=== PATIENT | female | born 1965 | race Caucasian/White ===

== ENCOUNTER 2023-02-06 07:47 | Emergency (ER) | payer OTHER ==
--- OUTSIDE RECORDS SUMMARY | 2023-02-06 07:54 | XMS REPORT | Continuity of Care Document ---
:1965 Author Organization [facility] t Address [address] [place] [address] [place] [id number] Care Team Providers Name Role Phone DERIC BRITO Primary Care Physician Unavailable CINDY CASILLAS Attending Clinician Unavailable MURRAY RESTREPO Attending Clinician Unavailable Murray Restrepo MD Attending Clinician LARRY RASHEED Attending Clinician Unavailable LARRY RASHEED Attending Clinician Unavailable Larry Rasheed MD Attending Clinician [address] [place] [address] Room Attending Clinician Unavailable Cindy Casillas MD Attending Clinician Unavailable Erika Attending Clinician Unavailable Therapy, [facility] Covid Infusion Attending Clinician Unavailable Haim Penn MD Attending Clinician HAIM PENN Attending Clinician Unavailable Celso Mora Attending Clinician CELSO ALVARADO Attending Clinician Unavailable Doctor Unassigned, [place] Attending Clinician Unavailable DR DERIC BRITO Attending Clinician Unavailable [id number] Attending Clinician Unavailable [id number] Attending Clinician Unavailable [email or web address] Attending Clinician Unavailable ANTONY AQUINO Attending Clinician Unavailable SETH LOREDO Attending Clinician Unavailable PEYMAN ROSALES Attending Clinician Unavailable Erika Admitting Clinician Unavailable DR DERIC BRITO Admitting Clinician Unavailable [email or web address] Admitting Clinician Unavailable Payers Payer Name Policy Type Policy Number Effective Date Expiration Date Sharon burt [facility] [id number] CLINIC MARKETPLACE PLAN [id number] HMO PPO/EPO - BCBS [id number] 2019 00:00:00 CHOICE/CHOICE [id number] 2011 2016 PLUS/OPTIONS PPO - 00:00:00 00:00:00 [facility] [id number] 2022 00:00:00 [facility] [id number] 2021 CHOICE EXCHANGE 00:00:00 [facility] [id number] 2020 2021 CHOICE - [place] 00:00:00 00:00:[address] (O) Problems Condition Condition Condition Status Onset Resolution Last Treating Co mments Source Name Details Category Date Date Treatment Clinician Date Pacemaker Pacemaker Disease Active [facility] of at end of 04-30 [facility] battery battery 00:00: Medical life life 00 Center Atrial Atrial Disease Active 2010-11 Overview: [facility] fibrillati fibrillati 0-24 [facility] on on 00:00: g of this Medical 00 note Center might be different from the original. Converted from [facility] Unspecifie Unspecifie Disease Active 2010-11 Overview : [facility] d d 0-24 [facility] essential essential 00:00: g of this edical hypertensi hypertensi 00 note Ce nter on on might be different from the original. Converted from [facility] Obstructiv Obstructiv Disease Active Overview : [facility] e sleep e sleep 5-05 [facility] apnea apnea 00:00: g of this Medical (adult) (adult) 00 note Center (pediatric (pediatric might be ) ) different from the original. Converted from [facility] Vitamin D Vitamin D Disease Active Overview: [facility] deficiency deficiency 4-08 [facility] 00:00: g of this Medical 00 note Center might be different from the original. Converted from ECWUPDATE D BY ICD10 SNOMED/IM O UPDATES Mixed Mixed Disease Active Overview: [facility] hyperlipid hyperlipid 02-25 [facility] emia emia 00:00: g of this Medical 00 note Center might be different from the original. Converted from [facility] MENORRHAGI MENORRHAGI Disease Active 2005-11 [facility] A A 12-06 [place] 00:00: of 00 Medicin e METRORRHAG METRORRHAG Disease Active 2005-11 [facility] [place] 12-06 [place] 00:00: of 00 Medicin e No known No known Disease Unive rs active active ity of problems problems [facility] Allergies, Adverse Reactions, Alerts Allergy Allergy Status Severity Reaction(s) Onset Inactive Treating Comm ents Source Name Type Date Date Clinician Clindamy Propensi Active Rash [facility] latha ty to 01-19 [place] adverse 00:00: of reaction Medicin s to e drug Clindamy Propensi Active Rash Univer s latha ty to 01-19 ity of adverse 00:00: [place] reaction 00 Medical s Branch CLINDAMY DRUG Active Rash Univers LATHA INGREDI 01-19 ity of 00:00: [place] 00 Medical Branch Adhesive Propensi Active Rash [facility] Tape ty to 04-30 [place] adverse 00:00: of reaction 00 Medicin s to e substanc e ADHESIVE Allergy Active Low Rash [facility] TAPE 04-30 00:00: 00 Adhesive Drug Active Rash [address] [facility] Tape Allergy 04-30 [facility] 00:00: Medical 00 Center Adhesive Propensi Active Rash Univer s Tape-Genesis ty to 04-30 ity of icones adverse 00:00: [place] reaction 00 Medical s Branch ADHESIVE DRUG Active Low Rash Univers TAPE-GENESIS 04-30 ity of ICONES 00:00: [place] 00 Medical Branch OTHER Allergy Active Low Rash SLEH No Known MA Active UNKNOWN [facility] Other Propensi Active Rash Converted [facility] ty to from [facility]; [facility] adverse Clindamyc Medica l reaction in - ; Center s Social History Social Habit Start Date Stop Date Quantity Comments Source History SDOH [facility] Alcohol Comment Medical C enter History SDOH [facility] Alcohol Std Drinks Medica l Center History SDOH [facility] Alcohol Binge Medical Marcio ter Exposure to 2022-09-30 2022-10-10 Not sure [facility] Colleg e SARS-CoV-2 (event) 00:00:00 07:19:00 of Med icine Tobacco use and 2022-08-31 2022-08-31 Smokeless tobacco [facility] [employer] exposure 00:00:00 00:00:00 non-user of Medicine Alcohol intake 2022-05-24 2022-05-[address] [facility] 00:00:00 00:00:00 non-drinker Medical Cente r (finding) History SDOH 2022-05-24 2022-05-[address] [facility] Alcohol Frequency 00:00:00 00:00:00 [facility] Sex Assigned At [address] Fiona falks 00:00:00 00:00:00 [facility] Smoking Status Start Date Stop Date Source Never smoked tobacco [facility] Nikolay ege of Medicine Medications Ordered Filled Start Stop Current Ordering Indication Dosage Frequency Signature Comments Components Source Medication Medication Date Date Medication? Clinician (SIG) Name Name B COMPLEX-C 2021-11 Yes 1{tbl} Take 1 [facility] 12-10 Tablet by College 08:26: mouth. of 02 Medicin e BABY 2021-11 Yes [facility] ASPIRIN OR 12-10 College 08:25: of 33 Medicin e buPROPion 2021-11 Yes 300mg Take 300 [facility] kadi (WELLBUTRIN 1-21 mg by College ) 300 MG XL 08:25: mouth of tablet 33 every Medicin morning. e Apixaban 2021-11 Yes 5mg Take 5 mg [facility] (ELIQUIS) 5 12-10 by mouth Nikolay ege MG TABS 08:25: two times of 33 daily. Medicin e Cholecalcif 2021-11 Yes [facility] katy 12-10 College (VITAMIN 08:25: of D3) 1.25 MG 12 Medicin (07021 UT) e CAPS Potassium 2021-11 Yes [facility] 75 MG TABS 12-10 College 08:25: of 07 Medicin e Metoprolol- 2021-11 Yes [facility] Hydrochloro 12-10 College thiazide 08:25: of 50-12.5 MG 07 Medicin TB24 e furosemide 2021-11 Yes 40mg Take 40 mg [facility] (LASIX) 40 1-21 by mouth. Nikolay ege MG tablet 08:25: of 07 Medicin e Potassium 2021-11 Yes [facility] 75 MG TABS 0-31 College 13:05: of 29 Medicin e Metoprolol- 2021-11 Yes [facility] Hydrochloro 0-31 College thiazide 13:05: of 50-12.5 MG 29 Medicin TB24 e furosemide 2021-11 Yes 40mg Take 40 mg [facility] (LASIX) 40 0-31 by mouth. Nikolay ege MG tablet 13:05: of 29 Medicin e Cholecalcif 2021-11 Yes [facility] katy 0-31 College (VITAMIN 13:05: of D3) 1.25 MG 29 Medicin (66181 UT) e CAPS BABY 2021-11 Yes [facility] ASPIRIN OR 031 College 13:05: of 29 Medicin e buPROPion 2021-11 Yes 300mg Take 300 [facility] kadi (WELLBUTRIN 0-31 mg by College XL) 300 MG 13:05: mouth of XL tablet 29 every Medicin morning. e Apixaban 2021-11 Yes 5mg Take 5 mg [facility] (ELIQUIS) 5 0-31 by mouth Nikolay ege MG TABS 13:05: two times of 29 daily. Medicin e Potassium 2021-11 Yes Wing 75 MG TABS 0-12 College 13:59: of 06 Medicin e Metoprolol- 2021-11 Yes [facility] Hydrochloro 0-12 College thiazide 13:59: of 50-12.5 MG 06 Medicin TB24 e furosemide 2021-11 Yes 40mg Take 40 mg [facility] (LASIX) 40 0-12 by mouth. Nikolay ege MG tablet 13:59: of 06 Medicin e Cholecalcif 2021-11 Yes [facility] katy 0-12 College (VITAMIN 13:59: of D3) 1.25 MG 06 Medicin (92691 UT) e CAPS BABY 2021-11 Yes [facility] ASPIRIN OR 0-12 College 13:59: of 06 Medicin e celecoxib 2021-11- No 100mg Take 1 [facility] (CELEBREX) 0-12 11-12 capsule by Co llege 100 MG 00:00: 05:59 mouth two of capsule 00 :00 times Medicin daily for e 30 days. celecoxib 2022-1 2022- No 100mg Take 1 [facility] (CELEBREX) 0-12 11-12 capsule by Co llege 100 MG 00:00: 05:59 mouth two of capsule 00 :00 times Medicin daily for e 30 days. busPIRone Yes [facility] (BUSPAR) 15 9-29 College MG tablet 00:00: of Medicin e busPIRone 0 Yes [facility] (BUSPAR) 15 9-29 College MG tablet 00:00: of Medicin e busPIRone 0 Yes [facility] (BUSPAR) 15 9-29 College MG tablet 00:00: of 00 Medicin e amoxicillin Yes [facility] (AMOXIL) 7-23 College 500 mg 00:00: of capsule 00 Medicin e amoxicillin Yes [facility] (AMOXIL) 7-23 College 500 mg 00:00: of capsule 00 Medicin e losartan Yes 25mg Take 25 mg [facility] (COZAAR) 50 7-13 by mouth Nikolay ege MG tablet 00:00: daily. of Medicin e losartan Yes Wing (COZAAR) 50 7-13 College MG tablet 00:00: of 00 Medicin e losartan Yes 25mg Take 25 mg [facility] (COZAAR) 50 7-13 by mouth Nikolay ege MG tablet 00:00: daily. of 00 Medicin e losartan Yes Take by Univer s potassium 7-05 mouth. ity of (LOSARTAN 19:03: [place] ORAL) 22 Medical Branch buspirone Yes Take by Unive rs HCl 7-05 mouth. ity of (BUSPIRONE 19:03: [place] ORAL) 22 Medical Branch losartan Yes Take by Univer s potassium 7-05 mouth. ity of (LOSARTAN 19:03: [place] ORAL) 22 Medical Branch buspirone Yes Take by Unive rs HCl 7-05 mouth. ity of (BUSPIRONE 19:03: [place] ORAL) 22 Medical Branch apixaban 5 Yes 5mg Take 5 mg Un teresa mg tablet 7-05 by mouth 2 ity of 19:02: (two) [place] 16 times Medical daily. Branch furosemide Yes 40mg Take 40 mg U nivers (LASIX) 40 7-05 by mouth ity o f mg tablet 19:02: daily. [address] POTASSIUM Yes Take by [facility] ([facility])e rs (POTASSIMIN 7-05 mouth. ity of ORAL) 19:02: [address] MAGNESIUM Yes Take by [facility] (Cupon[facility])e rs ORAL 7-05 mouth. ity of 19:02: [address] apixaban 5 Yes 5mg Take 5 mg Un teresa mg tablet 05 by mouth 2 ity of 19:02: (two) [place] [address] times Medical daily. Branch furosemide Yes 40mg Take 40 mg U nivers (LASIX) 40 7-05 by mouth ity o f mg tablet 19:02: daily. [address] POTASSIUM Yes Take by [facility] ([facility])e rs (POTASSIMIN 7-05 mouth. ity of ORAL) 19:02: [address] MAGNESIUM Yes Take by [facility] (Cuponium)e rs ORAL 7-05 mouth. ity of 19:02: [address] CHOLECALCIF Yes Take by Uni vers KATY, 3-02 mouth. ity of VITAMIN D3, 19:41: [place] (D3-1999 24 Medical ORAL) Branch CHOLECALCIF Yes Take by Uni vers KATY, 3-02 mouth. ity of VITAMIN D3, 19:41: [place] (D3-1999 24 Medical ORAL) [place] CHOLECALCIF Yes Take by Uni vers KATY, 3-02 mouth. ity of VITAMIN D3, 19:41: [place] (D3-1999 24 Medical ORAL) Branch apixaban 5 Yes 5mg Take 5 mg Un teresa mg tablet 02 by mouth 2 ity of 19:41: (two) [place] [id number] times Medical daily. Branch furosemide Yes 40mg Take 40 mg U nivers (LASIX) 40 3-02 by mouth ity o f mg tablet 19:41: daily. [address] POTASSIUM Yes Take by [facility] ([facility])e rs (POTASSIMIN 3-02 mouth. ity of ORAL) 19:41: [address] MAGNESIUM Yes Take by [facility] ([facility])e rs ORAL 3-02 mouth. ity of 19:41: [address] lidocaine Yes [id number] 5mL Take 5 mL Univers 2% viscous 3-02 by mouth ity o f (LIDOCAINE 00:00: every 4 [place] VISCOUS[place] 2 00 (four) Medical % solution hours as Branc h needed for Oral mucosal pain. lidocaine Yes [id number] 5mL Take 5 mL Univers 2% viscous 3-02 by mouth ity o f (LIDOCAINE 00:00: every 4 [place] V[place] 2 00 (four) Medical % solution hours as Branc h needed for Oral mucosal pain. lidocaine Yes [id number] 5mL Take 5 mL Univers 2% viscous 3-02 by mouth ity o f (LIDOCAINE 00:00: every 4 [place] VISCOUS[place] 2 00 (four) Medical % solution hours as Branc h needed for Oral mucosal pain. buPROPion Yes Univers XL 150 mg 2-13 ity of 24 hr 00:00: [place] tablet 00 [facility] buPROPion Yes Univers XL 150 mg 2-13 ity of 24 hr 00:00: [place] tablet 00 [facility] buPROPion Yes Univers XL 150 mg 2-13 ity of 24 hr 00:00: [place] tablet 00 [facility] metoprolol Yes 25mg QD Take [address] (TOPROL-XL) 6-11 by mouth Luke s 25 MG 24 hr 15:45: daily. Medi belkis tablet [place] valsartan Yes 80mg QD Take [address] (DIOVAN) 80 6-11 by mouth Luke s MG tablet 15:45: daily. Medica l 31 [place] warfarin Yes 7.5mg QD Take 7.[address] [facility] [address] (COUMADIN) 6-11 mg by Lukes 7.5 MG 15:45: mouth Medical tablet 31 daily. [place] warfarin Yes 5mg QD Take [address] [facility] (COUMADIN) 6-11 by mouth Lukes 5 MG tablet 15:45: daily. Medi belkis 31 Center celecoxib Yes 200mg Take [address] (CELEBREX) 6-11 mg by Lukes 200 MG 15:45: mouth Medical capsule 31 every 12 Center (twelve) hours as needed. metoprolol Yes 25mg QD Take [address] (TOPROL-XL) 6-11 by mouth Luke s 25 MG 24 hr 15:45: daily. Medi belkis tablet 31 Center valsartan Yes 80mg QD Take [address] (DIOVAN) 80 6-11 by mouth Luke s MG tablet 15:45: daily. [address] warfarin Yes 7.5mg QD Take 7.[address] (COUMADIN) 6-11 mg by Lukes 7.5 MG 15:45: mouth Medical tablet 31 daily. [place] warfarin 2012-0 Yes 5mg QD Take [address] (COUMADIN) 6-11 by mouth Lukes 5 MG tablet 15:45: daily. [address] celecoxib Yes 200mg Take [address] (CELEBREX) 6-11 mg by Lukes 200 MG 15:45: mouth Medical capsule 31 every 12 Center (twelve) hours as needed. metoprolol Yes 25mg QD Take [address] (TOPROL-XL) 6-11 by mouth Luke s 25 MG 24 hr 15:45: daily. [address] valsartan Yes 80mg QD Take [address] (DIOVAN) 80 6-11 by mouth Luke s MG tablet 15:45: daily. [address] warfarin Yes 7.5mg QD Take 7.[address] (COUMADIN) 6-11 mg by Lukes 7.5 MG 15:45: mouth Medical tablet 31 daily. [place] warfarin 2012-0 Yes 5mg QD Take [address] (COUMADIN) 6-11 by mouth Lukes 5 MG tablet 15:45: daily. [address] celecoxib Yes 200mg Take [address] (CELEBREX) 6-11 mg by Lukes 200 MG 15:45: mouth Medical capsule 31 every 12 Center (twelve) hours as needed. metoprolol Yes 25mg QD Take [address] (TOPROL-XL) 6-11 by mouth Luke s 25 MG 24 hr 15:45: daily. [address] valsartan Yes 80mg QD Take [address] (DIOVAN) 80 6-11 by mouth Luke s MG tablet 15:45: daily. [address] warfarin 2012- Yes 7.5mg QD Take 7.[address] (COUMADIN) 6-11 mg by Lukes 7.5 MG 15:45: mouth Medical tablet 31 daily. [place] warfarin 2013-0 Yes 5mg QD Take [address] (COUMADIN) 6-11 by mouth Lukes 5 MG tablet 15:45: daily. [address] celecoxib 2012-0 Yes 200mg Take [address] (CELEBREX) 6-11 mg by Lukes 200 MG 15:45: mouth Medical capsule 31 every 12 Center (twelve) hours as needed. metoprolol Yes 25mg QD Take [address] (TOPROL-XL) 6-11 by mouth Luke s 25 MG 24 hr 15:45: daily. [address] valsartan Yes 80mg QD Take [address] (DIOVAN) 80 6-11 by mouth Luke s MG tablet 15:45: daily. Medica l [address] [place] [address] warfarin Yes 7.5mg QD Take 7.[address] (COUMADIN) 6-11 mg by Lukes 7.5 MG 15:45: mouth Medical tablet 31 daily. [place] warfarin 2012-0 Yes 5mg QD Take [address] (COUMADIN) 6-11 by mouth Lukes 5 MG tablet 15:45: daily. [address] celecoxib Yes 200mg Take [address] (CELEBREX) 6-11 mg by Lukes 200 MG 15:45: mouth Medical capsule 31 every 12 Center (twelve) hours as needed. metoprolol Yes 25mg QD Take [address] (TOPROL-XL) 6-11 by mouth Luke s 25 MG 24 hr 15:45: daily. [address] valsartan 0 Yes 80mg QD Take [address] (DIOVAN) 80 6-11 by mouth Luke s MG tablet 15:45: daily. Medica l [address] [place] [address] warfarin 2012-0 Yes 7.5mg QD Take 7.[address] (COUMADIN) 6-11 mg by Lukes 7.5 MG 15:45: mouth Medical tablet 31 daily. [place] warfarin 2012-0 Yes 5mg QD Take [address] (COUMADIN) 6-11 by mouth Lukes 5 MG tablet 15:45: daily. [address] celecoxib 2012-0 Yes 200mg Take [address] (CELEBREX) 6-11 mg by Lukes 200 MG 15:45: mouth Medical capsule 31 every 12 Center (twelve) hours as needed. metoprolol Yes 25mg QD Take [address] (TOPROL-XL) 6-11 by mouth Luke s 25 MG 24 hr 15:45: daily. Medi belkis tablet 31 [place] valsartan Yes 80mg QD Take [address] (DIOVAN) 80 6-11 by mouth Luke s MG tablet 15:45: daily. Medica l 31 [place] warfarin Yes 7.5mg QD Take 7.[address] (COUMADIN) 6-11 mg by Lukes 7.5 MG 15:45: mouth Medical tablet 31 daily. [place] warfarin Yes 5mg QD Take [address] (COUMADIN) 6-11 by mouth Lukes 5 MG tablet 15:45: daily. Medi belkis 31 [place] celecoxib Yes 200mg Take [address] (CELEBREX) 6-11 mg by Lukes 200 MG 15:45: mouth Medical capsule 31 every 12 Center (twelve) hours as needed. metoprolol Yes Univers succinate 8-30 ity of XL 50 mg 24 00:00: [place] hr tablet 00 Medical Branch metoprolol Yes Univers succinate 8-30 ity of XL 50 mg 24 00:00: [place] hr tablet 00 Medical Branch metoprolol Yes Univers succinate 8-30 ity of XL 50 mg 24 00:00: [place] hr tablet 00 Medical Branch ZYRTEC 10 Yes 1 tab [facility] MG OR TABS 4-19 daily College 00:00: of 00 Medicin e ZYRTEC 10 Yes 1 tab [facility] MG OR TABS 4-19 daily College 00:00: of 00 Medicin e FOLITAB Yes 1 tab Wing 500-525-0.8 4-19 daily. Colleg e MG OR TBCR 00:00: of 00 Medicin e ZYRTEC 10 Yes 1 tab [facility] MG OR TABS 4-19 daily College 00:00: of 00 Medicin e FOLITAB Yes 1 tab Wing 500-525-0.8 4-19 daily. Colleg e MG OR TBCR 00:00: of 00 Medicin e DIOVAN HCT 2021- No 1 tab [facility] 80-12.5 MG 4-19 daily. Colleg e OR TABS 00:00: 00:00 of 00 :00 Medicin e ATENOLOL 25 2021- No 1 tab [facility] MG PO TABS 03-08- twice a Colle ge 00:00: 00:00 day. of 00 :00 Medicin e COUMADIN 5 2021- No 7.5mg 5 [facility] k[facility] MG OR TABS 03-08 10-12 days a Colleg e 00:00: 00:00 week. 10mg of 00 :00 2 days a Medicin week. e AMPICILLIN 2021- No 4 tabs [facility] 500 MG PO 03-08 stat College CAPS 00:00: 00:00 of 00 :00 Medicin e Immunizations Ordered Filled Immunization Date Status Comments Sour e Immunization Name Name OJ 2022-05-25 Completed University o f 00:00:00 [facility] Influenza TIV (IM) 2011-09-[address] [facility] 00:00:00 [facility] Influenza TIV (IM) 2011-09-[address] [facility] 00:00:00 [facility] Influenza TIV (IM) 2011-09-[address] [facility] 00:00:00 [facility] Influenza TIV (IM) 2011-09-[address] [facility] 00:00:00 [facility] Influenza TIV (IM) 2011-09-[address] [facility] 00:00:00 [facility] Influenza TIV (IM) 2011-09-[address] [facility] 00:00:00 [facility] Influenza TIV (IM) 2011-09-[address] [facility] 00:00:00 [facility] Vital Signs Vital Name Observation Time Observation Value Comments Source Systolic blood 2022-09-19 18:01:00 132 mm[Hg] [facility] pressure Medicine Diastolic blood 2022-09-19 18:01:00 76 mm[Hg] [facility] Medicine Heart rate 2022-09-19 18:01:00 75 /min [facility] Respiratory rate 2022-09-19 18:01:00 18 /min [facility] Body height 2022-09-19 18:01:00 162.6 cm [facility] Body weight 2022-09-19 18:01:00 93.26 kg [facility] BMI 2022-09-19 18:01:00 35.29 kg/m2 [facility] Systolic blood 2022-08-31 18:43:00 128 mm[Hg] [facility] Medicine Diastolic blood 2022-08-31 18:43:00 85 mm[Hg] [facility] Medicine Heart rate 2022-08-31 18:43:00 64 /min [facility] Body temperature 2022-08-31 18:43:00 36.61 [place] [facility] Body height 2022-08-31 18:43:00 162.6 cm [facility] Body weight 2022-08-31 18:43:00 91.989 kg [facility] BMI 2022-08-31 18:43:00 34.81 kg/m2 [facility] Oxygen saturation in 2022-08-31 18:43:00 98 /min [facility] Arterial blood by [facility] Pulse oximetry Systolic blood 2022-05-25 17:27:00 143 mm[Hg] Univer sity [facility] Diastolic blood 2022-05-25 17:27:00 77 mm[facility]Hg[facility] 2022-05-25 17:27:00 59 /min [facility] Body temperature 2022-05-25 17:27:00 36.67 [place] [facility] 2022-05-25 17:27:00 16 /[facility] O[facility] saturation in 2022-05-25 17:27:00 96 /min [facility] Arterial blood by [facility] Pulse oximetry Branch Body height 2022-05-25 16:21:00 165.1 cm [facility]i [facility] Body weight 2022-05-25 16:21:00 90.719 kg Universi [facility] BMI 2022-05-25 16:21:00 33.28 kg/m2 Universi [facility] Systolic blood 2022-05-25 00:03:00 117 mm[Hg] Univer sity of [facility] Diastolic blood 2022-05-25 00:03:00 77 mm[Hg] Unive rsity of [facility] Heart rate 2022-05-25 00:03:00 58 /min [facility] Body temperature 2022-05-25 00:03:00 36.89 [place] [facility] Respiratory rate 2022-05-25 00:03:00 16 /[facility] Body height 2022-05-25 00:03:00 165.1 cm [facility]i [facility] Body weight 2022-05-25 00:03:00 90.992 kg Universi [facility] BMI 2022-05-25 00:03:00 33.38 kg/m2 [facility] Oxygen saturation in 2022-05-25 00:03:00 98 /min [facility] Arterial blood by [facility] Pulse oximetry Branch HEIGHT 2022-05-24 14:47:00 165.1 cm WEIGHT 2022-05-24 14:47:00 90.719 kg HEIGHT 2022-05-24 14:47:00 165.1 cm WEIGHT 2022-05-24 14:47:00 90.719 kg HEIGHT 2022-05-24 14:47:00 165.1 cm WEIGHT 2022-05-24 14:47:00 90.719 kg HEIGHT 2022-01-21 13:00:02 162.6 cm WEIGHT 2022-01-21 13:00:02 88.451 kg HEIGHT 2022-01-21 13:00:02 162.6 cm WEIGHT 2022-01-21 13:00:02 88.451 kg Systolic blood 2022-10-10 11:47:00 132 mm[Hg] [facility] Diastolic blood 2022-10-10 11:47:00 64 mm[Hg] [facility] Heart rate 2022-10-10 11:47:00 63 /min [facility] Respiratory rate 2022-10-10 11:47:00 18 /min [facility] Oxygen saturation in 2022-10-10 11:47:00 98 /min [facility] Arterial blood by Medical nter Pulse oximetry Systolic blood 2022-05-24 14:47:00 163 mm[Hg] [facility] Diastolic blood 2022-05-24 14:47:00 81 mm[Hg] [facility] Heart rate 2022-05-24 14:47:00 73 /min [facility] Respiratory rate 2022-05-24 14:47:00 18 /min [facility] Oxygen saturation in 2022-05-24 14:47:00 98 /min [facility] Arterial blood by Medical Ce nter Pulse oximetry Body temperature 2022-05-24 14:47:00 37 [place] [facility] Body height 2022-05-24 14:47:00 165.1 cm [facility] Body weight 2022-05-24 14:47:00 90.719 kg [facility] BMI 2022-05-24 14:47:00 33.28 kg/m2 [facility] Procedures Procedure Date / Time Performing Clinician Source Performed NM MYOCARDIAL PERFUSION 2022-10-14 11:56:00 Murray Restrepo [facility] SPECT, PHARM Center TREADMILL 2022-10-10 11:32:29 Unknown, 7 [facility](NON-NUCLEAR Center TREADMILL) ECG 12-LEAD 2022-10-10 11:31:57 Unknown, 7 [facility] ECG 12-LEAD 2022-10-10 11:31:57 Unknown, [address] ECG 12-LEAD 2022-10-10 11:31:57 Unknown, [address] ECG 12-LEAD 2022-10-10 11:22:30 Unknown, [address] ECG 12-LEAD 2022-10-10 11:22:30 Unknown, [address] ECG 12-LEAD 2022-10-10 11:22:30 Unknown, 7 [facility] US THYROID 2022-09-28 12:06:00 Larry Rasheed [facility] POCT SARS-COV-2 ANTIGEN 2022-05-25 00:12:00 Celso Alvarado [facility] (BINAX NOW) Medical Branch ASSIGNMENT OF BENEFITS 2022-05-24 23:54:34 [facility] TRANSESOPHAGEAL ECHO 2022-01-21 12:40:[facility] [place] CONT WAVE PULSED DOPPLER 2022-01-21 12:10:41 [facility] COLOR-FLOW MAPPING 2022-01-21 12:10:41 [facility] BASIC METABOLIC PANEL 2022-01-21 12:03:00 [facility] [place] Plan of Care Planned Activity Planned Date Details Comments Source Future Scheduled 2024-03-09 Screening for malignant [facility] Test 00:00:00 neoplasm of breast Medical C enter (procedure) [code = 934277920] Future Scheduled 2024-03-09 Screening for malignant [facility] Test 00:00:00 neoplasm of breast Medical C enter (procedure) [code = 088151903] Future Scheduled 2024-03-09 Screening for malignant [facility] Test 00:00:00 neoplasm of breast Medical C enter (procedure) [code = 724066705] Future Scheduled 2024-03-09 Screening for malignant [facility] Test 00:00:00 neoplasm of breast Medical C enter (procedure) [code = 206819086] Future Scheduled 2024-03-09 Screening for malignant [facility] Test 00:00:00 neoplasm of breast Medical C enter (procedure) [code = 874647372] Future Scheduled 2024-03-09 Screening for malignant [facility] Test 00:00:00 neoplasm of breast Medical C enter (procedure) [code = 643550795] Future Scheduled 2024-03-09 Screening for malignant [facility] Test 00:00:00 neoplasm of breast Medical C enter (procedure) [code = 054089587] Future Scheduled 2023-05-[address] [facility] Test 00:00:00 Counseling [facility] Medical Cente r Screening (12+) [code = Tobacco Cessation Counseling and Screening (12+)] Future Scheduled 2023-05-[address] [facility] Test 00:00:00 Counseling and Medical Cente r Screening (12+) [code = Tobacco Cessation Counseling and Screening (12+)] Future Scheduled 2023-05-[address] [facility] Test 00:00:00 Counseling and Medical Cente r Screening (12+) [code = Tobacco Cessation Counseling and Screening (12+)] Future Scheduled 2023-05-[address] [facility] Test 00:00:00 Counseling and Medical Cente r Screening (12+) [code = Tobacco Cessation Counseling and Screening (12+)] Future Scheduled 2023-05-[address] [facility] Test 00:00:00 Counseling and Medical Cente r Screening (12+) [code = Tobacco Cessation Counseling and Screening (12+)] Future Scheduled 2023-05-[address] [facility] Test 00:00:00 Counseling and Medical Cente r Screening (12+) [code = Tobacco Cessation Counseling and Screening (12+)] Future Scheduled 2022-11-[address] [facility] Test 00:00:00 (12+) [code = Medical Center DEPRESSION SCREENING (12+)] Future Scheduled 2022-10-10 Screening for malignant [facility] Test 09:29:22 neoplasm of colon of Medicin e (procedure) [code = 602208931] Future Scheduled 2022-10-10 COVID-19 Vaccine (#1) [facility] Test 09:29:22 [code = COVID-19 of Medicine Vaccine (#1)] Future Scheduled 2022-10-10 TETANUS SHOT (ADULT) [facility] Test 09:29:22 [code = TETANUS SHOT of Medi cine (ADULT)] Future Scheduled 2022-10-10 BMI FOLLOW UP PLAN [facility] Test 09:29:22 [code = BMI FOLLOW UP of Med icine PLAN] Future Scheduled 2022-10-10 Hepatitis C screening Ba [facility] Test 09:29:22 (procedure) [code = of Medic ine 407359784] Future Scheduled 2022-10-10 Human immunodeficiency B [facility] Test 09:29:22 virus screening of Medicine (procedure) [code = 454338508] Future Scheduled 2022-10-10 Screening for malignant [facility] Test 09:29:22 neoplasm of cervix of Medici ne (procedure) [code = 976745901] Future Scheduled 2022-10-10 ZOSTER VACCINE (1 of 2) [facility] Test 09:29:22 [code = ZOSTER VACCINE of Me dicine (1 of 2)] Future Scheduled 2022-10-10 FLU VACCINE > 6 MONTHS [employer] Test 09:29:22 [code = FLU VACCINE > 6 of M edicine MONTHS] Future Scheduled 2022-10-10 Screening for malignant [facility] Test 09:29:22 neoplasm of breast of Medici ne (procedure) [code = 494475222] Future Scheduled 2022-09-26 US THYROID [code = Expected: [employer] Test 00:00:00 98488] 09/26/2022, of Medicine Expires: 09/19/2023 Future Scheduled 2022-09-19 Screening for malignant [facility] Test 13:03:07 neoplasm of colon of Medicin e (procedure) [code = 159498399] Future Scheduled 2022-09-19 COVID-19 Vaccine (#1) [facility] [employer] [facility] 13:03:07 [code = COVID-19 of Medicine Vaccine (#1)] Future Scheduled 2022-09-19 TETANUS SHOT (ADULT) [facility] Test 13:03:07 [code = TETANUS SHOT of Medi cine (ADULT)] Future Scheduled 2022-09-19 BMI FOLLOW UP PLAN [employer] Test 13:03:07 [code = BMI FOLLOW UP of Med icine PLAN] Future Scheduled 2022-09-19 Hepatitis C screening [employer] Test 13:03:07 (procedure) [code = of Medic ine 538842664] Future Scheduled 2022-09-19 [facility] Test 13:03:07 virus screening of Medicine (procedure) [code = 391184271] Future Scheduled 2022-09-19 Screening for malignant [facility] [employer] Test 13:03:07 neoplasm of cervix of Medici ne (procedure) [code = 243472322] Future Scheduled 2022-09-19 ZOSTER VACCINE (1 of 2) [employer] Test 13:03:07 [code = ZOSTER VACCINE of Me dicine (1 of 2)] Future Scheduled 2022-09-19 FLU VACCINE > 6 MONTHS [employer] Test 13:03:07 [code = FLU VACCINE > 6 of M edicine MONTHS] Future Scheduled 2022-09-19 Screening for malignant [facility] [employer] Test 13:03:07 neoplasm of breast of Medici ne (procedure) [code = 899946143] Future Scheduled 2022-08-31 Screening for malignant [facility] [employer] Test 14:55:00 neoplasm of colon of Medicin e (procedure) [code = 720415695] Future Scheduled 2022-08-31 COVID-19 Vaccine (#1) [employer] Test 14:55:00 [code = COVID-19 of Medicine Vaccine (#1)] Future Scheduled 2022-08-31 TETANUS SHOT (ADULT) [facility] Test 14:55:00 [code = TETANUS SHOT of Medi cine (ADULT)] Future Scheduled 2022-08-31 BMI FOLLOW UP PLAN [employer] Test 14:55:00 [code = BMI FOLLOW UP of Med icine PLAN] Future Scheduled 2022-08-31 Hepatitis C screening Ba [facility] Test 14:55:00 (procedure) [code = of Medic ine 483081574] Future Scheduled 2022-08-31 Human immunodeficiency B [facility] Test 14:55:00 virus screening of Medicine (procedure) [code = 401485323] Future Scheduled 2022-08-31 Screening for malignant [facility] Test 14:55:00 neoplasm of cervix of Medici ne (procedure) [code = 710317752] Future Scheduled 2022-08-31 ZOSTER VACCINE (1 of 2) [facility] Test 14:55:00 [code = ZOSTER VACCINE of Vt dicine (1 of 2)] Future Scheduled 2022-08-31 FLU VACCINE > 6 MONTHS [facility] Test 14:55:00 [code = FLU VACCINE > 6 of M edicine MONTHS] Future Scheduled 2022-08-31 Screening for malignant [facility] Test 14:55:00 neoplasm of breast of Medici ne (procedure) [code = 072063682] Future Scheduled 2022-08-31 XR HAND BILATERAL [facility] Test 14:54:47 (COMPLETE) [code = [place] [address]] Future Scheduled 2022-08-31 SEDIMENTATION RATE Ordered: [employer] Test 14:43:19 MODIFIED IBRAHIMA 08/31/2022 of Medic ine [code = 4537-7] Future Scheduled 2022-08-31 C-REACTIVE PROTEIN Ordered: [facility] Test 14:43:19 [code = 1988-5] 08/31/2022 of Medicine Future Scheduled 2022-08-31 CCP AB (IGG/IGA) [code Ordered: [employer] Test 14:43:19 = 85409-0] 08/31/2022 of Medicine Future Scheduled 2022-08-31 RHEUMATOID FACTOR [code Ordered: [facility] Test 14:43:19 = 93503-9] 08/31/2022 of Medicine Future Scheduled 2022-08-31 HLA-B27 ANTIGEN [code = Ordered: [facility] Test 14:43:19 44964] 08/31/2022 of Medicine Future Scheduled 2022-08-31 XR HAND BILATERAL 1 Occurrences [facility] Test 14:43:19 (COMPLETE) [code = [place] [address]] 08/31/2022 until 08/31/2023 Future Scheduled 2022-08-31 XR SACROILIAC JOINTS 1 Occurrences [facility] Test 14:43:19 (COMPLETE) [code = [place] [address]-4] 08/31/2022 until 08/31/2023 Future Scheduled 2022-08-31 XR LUMBAR SPINE 2 VIEWS 1 Occurrences [facility] Test 14:43:19 AP AND LAT [code = [place] [address]-2] 08/31/2022 until 08/31/2023 Future Scheduled 2022-07-21 INFLUENZA VACCINE (#1) [facility] 00:[facility]:00 [code = INFLUENZA Medical Ce nter VACCINE (#1)] Future Scheduled 2022-07-21 INFLUENZA VACCINE (#1) [facility] 00:00:00 [code = INFLUENZA Medical Ce nter VACCINE (#1)] Future Scheduled 2022-07-21 INFLUENZA VACCINE (#1) [facility] 00:00:00 [code = INFLUENZA Medical Ce nter VACCINE (#1)] Future Scheduled 2022-07-21 INFLUENZA VACCINE (#1) [facility] 00:00:00 [code = INFLUENZA Medical Ce nter VACCINE (#1)] Future Scheduled 2022-07-21 INFLUENZA VACCINE (#1) [facility] 00:00:00 [code = INFLUENZA Medical Ce nter VACCINE (#1)] Future Scheduled 2022-07-21 INFLUENZA VACCINE (#1) [facility] 00:00:00 [code = INFLUENZA Medical Ce nter VACCINE (#1)] Future Scheduled 2022-07-21 INFLUENZA VACCINE (#1) [facility] 00:00:00 [code = INFLUENZA Medical Ce nter VACCINE (#1)] Future Scheduled 2021-12-08 COVID-19 VACCINE (4 [facility] series) [code = COVID-19 VACCINE (4 - [facility] for [facility] series)] Future Scheduled 2021-12-08 COVID-19 VACCINE (4 - [facility] 00:[facility]00 [facility] series) [code = COVID-19 VACCINE (4 - [facility] for [facility] series)] Future Scheduled 2021-12-08 COVID-19 VACCINE (4 - [facility] 00:[facility]:00 [facility] series) [code = COVID-19 VACCINE (4 - [facility] for [facility] series)] Future Scheduled 2021-12-08 COVID-19 VACCINE (4 - [facility] 00:[facility]:00 [facility] series) [code = COVID-19 VACCINE (4 - [facility] for [facility] series)] Future Scheduled 2021-12-08 COVID-19 VACCINE (4 - [facility] 00:00:00 [facility] series) [code = COVID-19 VACCINE (4 - [facility] for [facility] series)] Future Scheduled 2021-12-08 COVID-19 VACCINE (4 - [facility] 00:00:00 [facility] series) [code = COVID-19 VACCINE (4 - [facility] for [facility] series)] Future Scheduled 2021-11-[address] [facility] Test 00:00:00 (12+) [code = Medical Center DEPRESSION SCREENING (12+)] Future Scheduled 2021-11-[address] [facility] Test 00:00:00 (12+) [code = Medical Center DEPRESSION SCREENING (12+)] Future Scheduled 2021-11-[address] [facility] Test 00:00:00 (12+) [code = Medical Center DEPRESSION SCREENING (12+)] Future Scheduled 2021-11-[address] [facility] Test 00:00:00 (12+) [code = Medical Center DEPRESSION SCREENING (12+)] Future Scheduled 2021-11-[address] [facility] Test 00:00:00 (12+) [code = Medical Center DEPRESSION SCREENING (12+)] Future Scheduled 2021-11-[address] [facility] Test 00:00:00 (12+) [code = Medical Center DEPRESSION SCREENING (12+)] Future Scheduled 2021-10-03 COVID-19 VACCINE (4 - [facility] 00:00:00 [facility] series) [code = COVID-19 VACCINE (4 - [facility] for [employer] series)] Future Scheduled 2015 SHINGLES VACCINES ([address] [facility] Test 00:00:00 2) [code = SHINGLES Medical Center VACCINES (1 of 2)] Future Scheduled 2015 SHINGLES VACCINES ([address] [facility] Test 00:00:00 2) [code = SHINGLES [facility] VACCINES (1 of 2)] Future Scheduled 2015 SHINGLES VACCINES ([address] [facility] Test 00:00:00 2) [code = SHINGLES [facility] VACCINES (1 of 2)] Future Scheduled 2015 SHINGLES VACCINES ([address] [facility] Test 00:00:00 2) [code = SHINGLES [facility] VACCINES (1 of 2)] Future Scheduled 2015 SHINGLES VACCINES ([address] [facility] Test 00:00:00 2) [code = SHINGLES [facility] VACCINES (1 of 2)] Future Scheduled 2015 SHINGLES VACCINES ([address] [facility] Test 00:00:00 2) [code = SHINGLES [facility] VACCINES (1 of 2)] Future Scheduled 2015 SHINGLES VACCINES ([address] [facility] Test 00:00:00 2) [code = SHINGLES [facility] VACCINES (1 of 2)] Future Scheduled 2014-09-16 Lipid panel (procedure) [facility] 00:00:00 [code = 79631560] Medical Ce nter Future Scheduled 2014-09-16 Lipid panel (procedure) [facility] Test 00:00:00 [code = 50459852] Medical Ce nter Future Scheduled 2014-09-16 Lipid panel (procedure) [facility] Test 00:00:00 [code = 50995106] Medical Ce nter Future Scheduled 2014-09-16 Lipid panel (procedure) [facility] Test 00:00:00 [code = 79788033] Medical Ce nter Future Scheduled 2014-09-16 Lipid panel (procedure) [facility] Test 00:00:00 [code = 97683870] Medical Ce nter Future Scheduled 2014-09-16 Lipid panel (procedure) [facility] 00:00:00 [code = 34769418] Medical Ce nter Future Scheduled 2014-09-16 Lipid panel (procedure) [facility] Test 00:00:00 [code = 56685188] Medical Ce nter Future Scheduled 1986 Screening for malignant [facility] Test 00:00:00 neoplasm of cervix Medical C enter (procedure) [code = 783310315] Future Scheduled 1986 Screening for malignant [facility] Test 00:00:00 neoplasm of cervix Medical C enter (procedure) [code = 277281932] Future Scheduled 1986 Screening for malignant [facility] Test 00:00:00 neoplasm of cervix Medical C enter (procedure) [code = 017981667] Future Scheduled 1986 Screening for malignant [facility] Test 00:00:00 neoplasm of cervix Medical C enter (procedure) [code = 163522420] Future Scheduled 1986 Screening for malignant [facility] Test 00:00:00 neoplasm of cervix Medical C enter (procedure) [code = 231657602] Future Scheduled 1986 Screening for malignant [facility] Test 00:00:00 neoplasm of cervix Medical C enter (procedure) [code = 863080218] Future Scheduled 1986 Screening for malignant [facility] Test 00:00:00 neoplasm of cervix Medical C enter (procedure) [code = 074695229] Future Scheduled 1984 DTAP/TDAP/TD VACCINES [facility] 00:00:00 (1 - Tdap) [code = Medical C enter DTAP/TDAP/TD VACCINES (1 - Tdap)] Future Scheduled 1984 DTAP/TDAP/TD VACCINES [facility] 00:00:00 (1 - Tdap) [code = Medical C enter DTAP/TDAP/TD VACCINES (1 - Tdap)] Future Scheduled 1984 DTAP/TDAP/TD VACCINES [facility] 00:00:00 (1 - Tdap) [code = Medical C enter DTAP/TDAP/TD VACCINES (1 - Tdap)] Future Scheduled 1984 DTAP/TDAP/TD VACCINES [facility] 00:00:00 (1 - Tdap) [code = Medical C enter DTAP/TDAP/TD VACCINES (1 - Tdap)] Future Scheduled 1984 DTAP/TDAP/TD VACCINES [facility] 00:00:00 (1 - Tdap) [code = Medical C enter DTAP/TDAP/TD VACCINES (1 - Tdap)] Future Scheduled 1984 DTAP/TDAP/TD VACCINES [facility] 00:00:00 (1 - Tdap) [code = Medical C enter DTAP/TDAP/TD VACCINES (1 - Tdap)] Future Scheduled 1984 DTAP/TDAP/TD VACCINES [facility] 00:00:00 (1 - Tdap) [code = Medical C enter DTAP/TDAP/TD VACCINES (1 - Tdap)] Future Scheduled 1983 HEPATITIS C [facility]CRE[facility]ING [facility] 00:00:00 [code = HEPATITIS C Medical Center SCREENING] Future Scheduled 1983 HEPATITIS C [facility] 00:00:00 [code = HEPATITIS C Medical Center SCREENING] Future Scheduled 1983 HEPATITIS C [facility] 00:00:00 [code = HEPATITIS C Medical Center SCREENING] Future Scheduled 1983 HEPATITIS C [facility] 00:00:00 [code = HEPATITIS C Medical Center SCREENING] Future Scheduled 1983 HEPATITIS C [facility] 00:00:00 [code = HEPATITIS C Medical Center SCREENING] Future Scheduled 1983 HEPATITIS C [facility] 00:00:00 [code = HEPATITIS C Medical Center SCREENING] Future Scheduled 1983 HEPATITIS C [facility] 00:00:00 [code = HEPATITIS C Medical Center SCREENING] Future Scheduled 1965 CT Colonography (combo) [facility] Test 00:00:00 [code = CT Colonography [facility] (combo)] Future Scheduled 1965 Screening for malignant [facility] Test 00:00:00 neoplasm of colon Medical Ce nter (procedure) [code = 760588540] Future Scheduled 1965 Screening for malignant [facility] Test 00:00:00 neoplasm of colon Medical Ce nter (procedure) [code = 010326595] Future Scheduled 1965 Screening for malignant [facility] Test 00:00:00 neoplasm of colon Medical Ce nter (procedure) [code = 637409578] Future Scheduled 1965 Screening for malignant [facility] Test 00:00:00 neoplasm of colon Medical Ce nter (procedure) [code = 614364045] Future Scheduled 1965 Sigmoidoscopy [code = [facility] S[facility]oscopy] Medical Cente r Future Scheduled 1965 CT Colonography (combo) [facility] Test 00:00:00 [code = CT Colonography [facility] (combo)] Future Scheduled 1965 Screening for malignant [facility] Test 00:00:00 neoplasm of colon Medical Ce nter (procedure) [code = 692449645] Future Scheduled 1965 Screening for malignant [facility] Test 00:00:00 neoplasm of colon Medical Ce nter (procedure) [code = 058044572] Future Scheduled 1965 Screening for malignant [facility] Test 00:00:00 neoplasm of colon Medical Ce nter (procedure) [code = 200245056] Future Scheduled 1965 Screening for malignant [facility] Test 00:00:00 neoplasm of colon Medical Ce nter (procedure) [code = 870906913] Future Scheduled 1965 Sigmoidoscopy [code = [facility] Sigmoidoscopy] Medical Cente r Future Scheduled 1965 CT Colonography (combo) [facility] 00:00:00 [code = CT Colonography [facility] (combo)] Future Scheduled 1965 Screening for malignant [facility] Test 00:00:00 neoplasm of colon Medical Ce nter (procedure) [code = 558001392] Future Scheduled 1965 Screening for malignant [facility] Test 00:00:00 neoplasm of colon Medical Ce nter (procedure) [code = 603811303] Future Scheduled 1965 Screening for malignant [facility] Test 00:00:00 neoplasm of colon Medical Ce nter (procedure) [code = 415211782] Future Scheduled 1965 Screening for malignant [facility] Test 00:00:00 neoplasm of colon Medical Ce nter (procedure) [code = 081366410] Future Scheduled 1965 Sigmoidoscopy [code = [facility] 00:[facility] Sigmoidoscopy] Medical Cente r Future Scheduled 1965 CT Colonography (combo) [facility] 00:00:00 [code = [facility] Future Scheduled 1965 Screening for malignant [facility] Test 00:00:00 neoplasm of colon Medical Ce nter (procedure) [code = 101430573] Future Scheduled 1965 Screening for malignant [facility] Test 00:00:00 neoplasm of colon Medical Ce nter (procedure) [code = 215053680] Future Scheduled 1965 Screening for malignant [facility] Test 00:00:00 neoplasm of colon Medical Ce nter (procedure) [code = 692129500] Future Scheduled 1965 Screening for malignant [facility] Test 00:00:00 neoplasm of colon Medical Ce nter (procedure) [code = 655491934] Future Scheduled 1965 Sigmoidoscopy [code = [facility] 00:[facility] Sigmoidoscopy] Medical Cente r Future Scheduled 1965 CT Colonography (combo) [facility] 00:00:00 [code = CT [facility] ([facility])] Future Scheduled 1965 Screening for malignant [facility] Test 00:00:00 neoplasm of colon Medical Ce nter (procedure) [code = 609758654] Future Scheduled 1965 Screening for malignant [facility] Test 00:00:00 neoplasm of colon Medical Ce nter (procedure) [code = 010849314] Future Scheduled 1965 Screening for malignant [facility] Test 00:00:00 neoplasm of colon Medical Ce nter (procedure) [code = 793141396] Future Scheduled 1965 Screening for malignant [facility] Test 00:00:00 neoplasm of colon Medical Ce nter (procedure) [code = 004521497] Future Scheduled 1965 Sigmoidoscopy [code = [facility] S[facility]oidoscopy] Medical Margaritae r Future Scheduled 1965 CT Colonography (combo) [facility] 00:00:00 [code = CT [facility] ([facility])] Future Scheduled 1965 Screening for malignant [facility] Test 00:00:00 neoplasm of colon Medical Ce nter (procedure) [code = 206716446] Future Scheduled 1965 Screening for malignant [facility] Test 00:00:00 neoplasm of colon Medical Ce nter (procedure) [code = 545176703] Future Scheduled 1965 Screening for malignant [facility] Test 00:00:00 neoplasm of colon Medical Ce nter (procedure) [code = 877932878] Future Scheduled 1965 Screening for malignant [facility] Test 00:00:00 neoplasm of colon Medical Ce nter (procedure) [code = 638160830] Future Scheduled 1965 Sigmoidoscopy [facility]code = [facility] 00:[facility] Sigmoidoscopy] Medical Margaritae r Future Scheduled 1965 CT Colonography (combo) [facility] Test 00:00:00 [code = CT [facility] ([facility])] Future Scheduled 1965 Screening for malignant [facility] Test 00:00:00 neoplasm of colon Medical Ce nter (procedure) [code = 200173203] Future Scheduled 1965 Screening for malignant [facility] Test 00:00:00 neoplasm of colon Medical Ce nter (procedure) [code = 977144672] Future Scheduled 1965 Screening for malignant [facility] Test 00:00:00 neoplasm of colon Medical Ce nter (procedure) [code = 656649819] Future Scheduled 1965 Screening for malignant [facility] Test 00:00:00 neoplasm of colon Medical Ce nter (procedure) [code = 931041576] Future Scheduled 1965 Sigmoidoscopy [facility]code [facility] S[facility]oscopy] Medical Cente r Encounters Start End Encounter Admission Attending Care Care Encounter Source Date/Time Date/Time Type Type Clinicians Facility Department ID 2022-05-23 Outpatient LILIBETH MCELROY [id number] El 16:27:11 [id number] [facility] 2022-11-02 2022-11-02 Outpatient [facility] [id number] [facility] 13:19:44 13:19:44 [facility] 2022-10-26 2022-10-26 Outpatient CINDY CASILLAS [facility] [id number] [facility] 00:00:00 00:00:00 [facility] 2022-10-10 2022-10-10 Outpatient MURRAY AGOSTO [facility] [id number] [facility] 10:35:32 23:59:00 2022-10-10 2022-10-10 [facility] [id number] [id number] 10:35:32 23:59:00 Encounter [facility] 2022-10-10 2022-10-10 [facility] [id number] [id number] 10:35:32 23:59:00 Encounter [facility] 2022-10-10 2022-10-[address] [facility] [id number] [facility] 09:10:18 09:21:10 Visit Michelle [id number] Co llege [id number] Medi latha 560 e 2022-10-10 2022-10-10 Outpatient LARRY RASHEED [facility] [id number] [facility] 00:00:00 00:00:00 Colleg e of Medicin e 2022-09-28 2022-09-28 Outpatient LARRY BLANCHARD [facility] SLE [id number] SLEH 11:37:49 23:59:00 2022-09-28 2022-09-28 [facility] Ninoska Larry [facility] [id number] [facility] [address] 11:30:00 23:59:00 Encounter [facility] Michelle [facility] 2022-09-28 2022-09-28 [facility] Ninoska [facility] [id number] 11:30:00 23:59:00 Encounter 1, [facility] Michelle Room [facility] 2022-09-28 2022-09-28 Outside Ninoska [facility] [id number] 00:00:00 00:00:00 Orders [facility] 2022-09-28 2022-09-28 Outside Ninoska [facility] [id number] 00:00[facility]00 00:00:00 Orders [facility] 2022-09-21 2022-09-21 [facility] Ninoska [facility] [id number] [facility] 14:00:00 23:59:00 Encounter [facility] 2022-09-21 2022-09-21 [facility] Ninoska [facility] [id number] 14:00:00 23:59:00 Encounter [facility] 2022-09-21 2022-09-21 Outpatient EL NINOSKA [facility] SLE SLEH [id number] SLEH 00:00:00 23:59:00 2022-09-19 2022-09-19 Outpatient [facility] [id number] [facility] 14:18:42 14:18:42 Colleg e [facility] Medicin e 2022-09-19 2022-09-19 Outpatient [facility] [id number] [facility] 14:18:18 14:18:18 Colleg e of Medicin e 2022-09-19 2022-09-19 Office LARRY RASHEED [facility] [id number] [facility] 12:34:20 14:09:54 Visit AMBULATOR 350.1.13.21 College Y 0.2.7.2.686 [id number] Medi latha 310 e 2022-09-19 2022-09-19 Orders Ninoska [facility] [id number] 00:00:00 00:00:00 Only [facility] 2022-09-19 2022-09-19 Orders Ninoska [facility] [id number] 00:00:00 00:00:00 Only [facility] 2022-08-31 2022-08-31 Outpatient [facility] [id number] [facility] 14:54:42 14:54:42 Karlos jordan of Medicin e 2022-08-31 2022-08-[address] [facility] 1.2.840.114 [id number] [facility] 14:00:00 14:52:00 Visit Bre AMBULATOR 350.1.13.21 College Y 0.2.7.2.686 of [id number] [facility] 370 e 2022-07-12 2022-07-12 Outpatient MURRAY AGOSTO SLE SLEH [id number] SLE 00:00:00 00:00:00 2022-06-10 2022-06-10 Outpatient Rom_Bladimirdinesh THEODORE [facility] [id number] [place] 03:00:00 03:00:00 da [facility] Program 2022-05-25 2022-05-25 Nurse Therapy, Clc Covid Infusion [facility]UST 1.2.840.114 [id number] Univers 11:30:00 12:30:[address] [facility] 350.1.13.10 itGino 4.2.7.2.686 [place] GOLDBERG [id number] [place] [id number] [place] OFFICE BUILDING 2022-05-25 2022-05-25 Outpatient Yane PENN [facility] [id number] Univers 11:30:00 11:30:00 HAIM [facility] 2022-05-24 2022-05-24 Urgent [facility] 1.2.840.114 [id number] Univers 19:00:00 19:20:00 Care [facility] 350.1.13.10 i ana of DEYSI 4.2.7.2.686 Antwon as ALEXIS?BLEA [id number] Vt luli [address] MEDICAL OFFICE BUILDING 2022-05-24 2022-05-24 Outpatient Yane ALVARADO [facility] [id number] Univers 19:00:00 19:00:00 CELSO johnson o mone [facility] 2022-05-24 2022-05-24 Emergency ER SLEH Emergency [id number] SLEH 14:57:00 14:58:00 2022-05-24 2022-05-[address] [facility] [id number] 14:57:00 14:58:00 [facility] 2022-05-24 2022-05-[address] [facility] [id number] 14:57:00 14:58:00 [facility] 2022-05-24 2022-05-24 Travel [facility] [id number] [facility] 00:00:00 00:00:00 [facility] 2022-05-24 2022-05-24 Travel [facility] [id number] [facility] 00:[facility]00 00:00:00 [facility] 2022-05-24 2022-05-24 Orders Doctor MURRAY 1.2.840.114 [id number] Univers 00:00:00 00:00:00 Only Unassigned, SHANITA 350.1.13.10 ity of [place] [facility] 4.2.7.2.686 Antwon as [id number] [place] [id number] [address] 2022-05-23 2022-05-23 Outpatient Anum DERIC BRITO [facility] TY [id number] 16:37:00 17:14:00 [id number] [facility] Ca mpo [id number] [facility] 2022-03-09 2022-03-09 Outpatient [facility] [id number] [place] [address] 12:45:14 15:06:27 Colleg e of Medicin e 2022-02-17 2022-02-17 Outpatient GC_LMG_Comp PRIV PRIV [id number] [facility] 04:53:00 04:53:00 ton_B [id number] Medica l 2022-02-17 2022-02-17 Outpatient GC_LMG_Comp PRIV PRIV [id number] [facility] 04:53:00 04:53:00 ton_B [id number] Medica l 2022-02-07 2022-02-07 Outpatient GC_LMG_Comp PRIV PRIV [id number] [facility] 01:14:00 01:14:00 ton_B [id number] Medica l 2022-02-07 2022-02-07 Outpatient MURRAY AGOSTO SLE [id number] SLEH 00:00:00 00:00:00 2022-01-21 2022-01-21 Outpatient MURRAY AGOSTO SLE [id number] SLEH 12:10:41 23:59:00 2022-01-21 2022-01-21 [facility] Murray Restrepo [facility] [id number] 12:10:41 23:59:00 Encounter [facility] 2022-01-21 2022-01-21 Outpatient [facility] [id number] [facility] 00:00:00 23:59:00 Kingin e 2022-01-21 2022-01-21 Orders JENNIFER Restrepo [facility] [id number] 12:00:00 12:15:00 Only [facility] 2022-01-21 2022-01-21 [facility] [id number] SLE 11:58:55 11:58:55 2022-01-20 2022-01-20 Outside Kaye [facility] [id number] 00:00:00 00:00:00 Orders [facility] 2022-01-12 2022-01-12 Outside Kaye, [facility] [id number] 00:00:00 00:00:00 Orders [facility] 2022-01-10 2022-01-10 Emergency E MILES, MHSE MHSE 7500 MH 08:47:00 12:30:00 [facility] 2021-11-05 2021-11-05 Outpatient Rom_Leandro NVJENNI [facility] [id number] [facility] 05:25[facility] 05:25:00 [id number] da [facility] Outre h Program 2020-02-20 2020-02-20 Outpatient Yane LOREDO [facility] [id number] Univers 19:00:00 19:00:00 SETH [facility] 2017-09-06 2017-09-06 Outpatient MEDARDO VALDEZ SLE [id number] [facility] 00:00:00 00:00:00 PEYMAN Results Test Description Test Time Test Comments Results Result Sour e Comments [facility], 2022-10-14 Unlisted Reason MULTI, PHARM, 16:04:00 for Exam - Click SPECT Yes and Enter Reason [facility] - Below->YesUnlisted MEDICAL CENTERName: Reason for DWAIN BERNARDO Exam->paf ARRIETA : 1965 Sex: F *FINAL REPORT PROCEDURE: Rest/Stress MYOCARDIAL PERFUSION SPECT with regadenoson\XA9\ CPT CODE: 79277 INDICATION: 57-year-old female, PAF TECHNIQUE: 29.0 mCi of Tc-99m sestamibi was injected iv at rest, and SPECT (tomographic) images were obtained. Also, 29.4 mCi of Tc-99m sestamibi was injected iv at expected peak pharmacologic effect, and gated SPECT images were obtained. PRELIMINARY STRESS TEST DATA FROM NONINVASIVE CARDIOLOGY: Pharmacologic stress was by 10-second iv infusion of 0.4 mg of regadenoson. Radiotracer was injected 30 seconds after start of stress. Heart rate was 70 beats/min at rest and 62 beats/min (38 % of MPHR) at tracer injection. BP was 144/75 mmHg at rest and 118/66 mmHg at tracer injection. Stress was stopped for predetermined endpoint. The patient experienced dyspnea; treatment was not required. (Final ECG interpretation and other stress and monitoring data are reported separately by Cardiology.) IMAGING FINDINGS:Study quality is adequate. There is a small sized mild intensity fixed defect involving the apical segment of the inferior wall along with the apical and mid aspect of inferolateral wall. LV and RV volumes appear normal. Gated images obtained at rest after stress show normal LV wall motion and thickening. QGS LVEF is 56%. IMPRESSION:1. Abnormal study.2. No scintigraphic evidence of inducible ischemia.3. Small size mild intensity fixed defect within the apical segment of the inferior wall along with apical and mid aspect of inferolateral wall, possibly related to prior cardiac insult.4. Normal resting LV function. Signed: Sebas Singh MDReport Verified Date/Time: 10/14/2022 16:04:46 , THYROID 2022-09-28 Reason for 16:16:00 Exam:->Multiple thyroid nodulesSmall [facility] - bilateral thyroid MEDICAL CENTERName: nodules seen DWAIN BERNARDO incidentally on CT ARRIETA : neck Lives v far. 1965 Sex: F *FINAL REPORT US, THYROID TECHNIQUE: Grayscale and color doppler ultrasound of the thyroid. INDICATION: Multiple thyroid nodules COMPARISON: None. FINDINGS: Thyroid gland size: Right lobe: 4.4 x 1.4 x 1.9 cmLeft lobe: 4.2 x 1.4 x 1.9 cmIsthmus: 0.4 cm Thyroid gland appearance: Homogeneous echotexture without increased vascularity. Thyroid nodules: Multiple bilateral thyroid nodules, most suspicious described below Right thyroid: *1.0 cm very hypoechoic (3 pts) solid (2 pts) nodule in the lower gland is rbnnq-eoyt-dhau (0 pts) with smooth margin (0 pts) and no calcifications (0 pts).TI-RADS category: 4b (1.0-1.5 cm), Moderately Suspicious.Recommend ation: Follow-up thyroid ultrasounds at 1, 2, 3, and 5 years. *0.4 cm very hypoechoic (3 pts) probably solid (2 pt) nodule in the lower gland is sfwtz-todo-vbkr (0 pts) with smooth margin (0 pts) and no calcifications (0 pts).TI-RADS category: 4a (<1.0 cm).Recommendation: No follow-up. Left thyroid: *1.0 cm anechoic (0 pts) cystic (0 pts) nodule in the upper gland is wcxte-zirb-bucl (0 pts) with smooth margin (0 pts) and comet tail artifacts (0 pts).TI-RADS category: 1, BenignRecommendation : No follow-up. Parathyroid:No parathyroid nodule is identified. Lymph nodes:No abnormal lymph nodes identified. IMPRESSION: Multinodular thyroid. Recommend follow-up ultrasound at the intervals described above. TI-RADS category: 4b (1.0-1.5 cm), Moderately Suspicious.Recommend ation: Follow-up thyroid ultrasounds at 1, 2, 3, and 5 years. Reference:ACR Thyroid Imaging, Reporting and Data System (TI-RADS): White Paper of the ACR TI-RADS Committee. J Am Nikolay Radiol 2017. Signed: Nick Herrera Verified Date/Time: 09/28/2022 16:16:53 SARS-COV-2 ANTIGEN (BINAX NOW) 2022-05-25 00:27:00 Test Item Value Reference Range Interpretation Comme nts POCT SARS-COV-2 ANTIGEN (test code = 5076) Positive Not Detecte d A On board controls acceptable with C Line (test code = 3574) Yes Lab Interpretation (test code = 02756-0) [id number] 15:36:44 Ejection FractionSLEH ECHO HEARTLAB MKCKESSON [facility] Transesophageal [id number] 15:36:44Ejection FractionSLEH ECHO HEARTLAB MKCKESSON [facility] [id number] 15:36:44Ejection FractionSLEH ECHO HEARTLAB MKCKESSON [facility] [id number] 15:36:44Ejection FractionSLEH ECHO HEARTLAB MKCKESSON [facility] [id number] 15:36:44Ejection FractionSLEH ECHO HEARTLAB MKCKESSON [facility] [id number] 15:36:44Ejection FractionSLEH ECHO HEARTLAB [facility]OL[facility] [id number] 12:32:58 Test Item Value Reference Range Interpretation Comments SODIUM (BEAKER) 138 meq/L 136-145 (test code = 381) POTASSIUM (BEAKER) 4.1 meq/L 3.5-5.1 (test code = 379) CHLORIDE (BEAKER) 104 meq/L 98-107 (test code = 382) CO2 (BEAKER) (test 28 meq/L 22-29 code = 355) BLOOD UREA NITROGEN 16 mg/dL 7-21 (BEAKER) (test code = 354) CREATININE (BEAKER) 0.80 mg/dL 0.57-1.25 (test code = 358) GLUCOSE RANDOM 92 mg/dL 70-105 (BEAKER) (test code = 652) CALCIUM (BEAKER) 9.4 mg/dL 8.4-10.2 (test code = 697) EGFR (BEAKER) (test 74 mL/min/1.73 ESTIMA JUDITH GFR IS code = 1092) sq m NOT ACCURATE CREATININE CLEARANCE IN PREDICTING GLOMERULAR FILTRATION RATE . ESTIMATED GFR I S NOT APPLICABLE FOR DIALYSIS PATIEN TS. Bonding Agent ID - REENA CAMRON, CHEST, 2 [id number] 14:35:00Reason for Exam:- >I48.0, I47.2, Q21.1, I10, E78.4, Z79.01, G47.33FINAL REPORT Chest, two views HISTORY: Cardiac disease COMPARISON: 06/22/2016 DISC USSION: Unchanged enlargement of the cardiomediastinal silhouette. Dual-lead pacemaker with intact leads. Mild bilateral interstitial prominence. No focal consolidation. No pleural effusion or pneumothorax. Degenerative changes in the thoracic spine. IMPRESSION: No acute cardiopulmonary abnormality. Unchanged enlargement of the cardiomediastinal silhouette. Signed: Artem Hendersoneport Verified Date/Time: 09/27/2017 14:35:14 Reading Location: [address] Radiology Reading Room
[2023-02-06] MEDS ORDERED: DIAZEPAM 5 MG TABLET ONE (08:39)
[2023-02-06] MEDS ORDERED: dexAMETHasone 10 MG/ML VIAL ONE (08:39)
[2023-02-06] MEDS ORDERED: FENTANYL CITR 100 MCG/2 ML ONE (08:39)
[2023-02-06] MEDS ORDERED: NA CHLORIDE 0.9% 1,000 ML ONE (08:40)
[2023-02-06] MEDS ORDERED: ONDANSETRON 4 MG/2 ML VIAL ONE (08:40)
[2023-02-06] MEDS ORDERED: KETOROLAC 30 MG/ML INJ ONE (08:40)
--- NOTE | 2023-02-06 09:00 | RAD REPORT ---
EXAM DESCRIPTION: CT - Spine Lumbar Wo Con - 02/06/2023 8:33 am CLINICAL HISTORY: Radiculopathy. PAIN COMPARISON: No comparisons TECHNIQUE: Axial noncontrast CT imaging of the lumbar spine was performed with coronal and sagittal re-formatted images. All CT scans are performed using dose optimization technique as appropriate and may include automated exposure control or mA/KV adjustment according to patient size. FINDINGS: No acute lumbar spine fracture seen. No aggressive marrow pattern. Paraspinal tissues are normal in thickness. No paraspinal abscess or hematoma seen. 5 mm degenerative anterolisthesis of L4 on 5. Prominent facet hypertrophy L4-5 and L5-S1. Mild lower lumbar disc bulging is present. IMPRESSION: No acute lumbar spine abnormality. Mild to moderate lower lumbar spondylosis as detailed.
[2023-02-06 09:03] LABS: Absolute Lymphocytes (CBC) 1.3 K/uL (0.7-4.9); Hematocrit 41.8 % (36.0-45.0); Lymphocytes % 10.2 % (15.3-44.8); MCV 94.2 fL (80-100); MPV 9.5 fL (7.6-11.3); RBC Red Blood Cell Count 4.44 M/uL (3.86-4.86)
[2023-02-06 09:23] LABS: Potassium 3.5 mEq/L (3.5-5.1); Protein, Total 8.7 g/dL (6.4-8.2)
--- NOTE | 2023-02-06 09:29 | EDPHYS ---
Physician Documentation [facility] Name: Luly Bernardo Age: 57 yrs Sex: Female : 1965 Arrival Date: 02/06/2023 Time: 07:53 Bed 20 Private MD: ED Physician Chepe Mcleod HPI: 02/06 08:21 This 57 yrs old Female presents to ER via Ambulatory with complaints of Low bentley Back Pain, Leg Pain. 08:21 The patient presents with pain that is acute, with no known mechanism of injury. The bentley symptoms are located in the low back. The pain does not radiate. The pain radiates to the right low back. The problem was sustained when lifting from twisting. Onset: The symptoms/episode began/occurred yesterday. Modifying factors: The patient symptoms are alleviated by nothing, remaining still. Associated signs and symptoms: The patient has no apparent associated signs or symptoms. Severity of symptoms: At their worst the symptoms were mild, moderate, in the emergency department the symptoms are unchanged. The patient has not experienced similar symptoms in the past. Historical: - Allergies: 08:05 Clindamycin; iw - Home Meds: 08:05 Metoprolol Tartrate Oral [Active]; Eliquis oral [Active]; losartan oral [Active]; iw Wellbutrin Oral [Active]; Vitamin D Oral [Active]; Furosemide Oral as needed [Active]; Buspirone Oral [Active]; - PMHx: 08:05 Anxiety; Atrial fibrillation; Hypertensive disorder; iw - PSHx: 08:05 ASD repair; hysterectomy; pacemaker; iw - Immunization history:: Adult Immunizations up to date. - Social history:: Smoking status: Patient denies any tobacco usage or history of. - Family history:: not pertinent. ROS: 08:21 Constitutional: Negative for fever, chills, and weight loss, Eyes: Negative for injury, bentley pain, redness, and discharge, ENT: Negative for injury, pain, and discharge, Neck: Negative for injury, pain, and swelling, Cardiovascular: Negative for chest pain, palpitations, and edema, Respiratory: Negative for shortness of breath, cough, wheezing, and pleuritic chest pain, Abdomen/GI: Negative for abdominal pain, nausea, vomiting, diarrhea, and constipation, : Negative for injury, bleeding, discharge, and swelling, MS/Extremity: Negative for injury and deformity, Skin: Negative for injury, rash, and discoloration, Neuro: Negative for headache, weakness, numbness, tingling, and seizure. 08:21 Back: Positive for decreased range of motion, pain at rest, pain with movement, radiated pain. Exam: 08:21 Constitutional: This is a well developed, well nourished patient who is awake, alert, bentley and in no acute distress. Head/Face: Normocephalic, atraumatic. Eyes: Pupils equal round and reactive to light, extra-ocular motions intact. Lids and lashes normal. Conjunctiva and sclera are non-icteric and not injected. Cornea within normal limits. Periorbital areas with no swelling, redness, or edema. ENT: Nares patent. No nasal discharge, no septal abnormalities noted. Tympanic membranes are normal and external auditory canals are clear. Oropharynx with no redness, swelling, or masses, exudates, or evidence of obstruction, uvula midline. Mucous membranes moist. Neck: Trachea midline, no thyromegaly or masses palpated, and no cervical lymphadenopathy. Supple, full range of motion without nuchal rigidity, or vertebral point tenderness. No Meningismus. Chest/axilla: Normal chest wall appearance and motion. Nontender with no deformity. No lesions are appreciated. Cardiovascular: Regular rate and rhythm with a normal S1 and S2. No gallops, murmurs, or rubs. Normal PMI, no JVD. No pulse deficits. Respiratory: Lungs have equal breath sounds bilaterally, clear to auscultation and percussion. No rales, rhonchi or wheezes noted. No increased work of breathing, no retractions or nasal flaring. Abdomen/GI: Soft, non-tender, with normal bowel sounds. No distension or tympany. No guarding or rebound. No evidence of tenderness throughout. Female : Normal external genitalia. Skin: Warm, dry with normal turgor. Normal color with no rashes, no lesions, and no evidence of cellulitis. MS/ Extremity: Pulses equal, no cyanosis. Neurovascular intact. Full, normal range of motion. Neuro: Awake and alert, GCS 15, oriented to person, place, time, and situation. Cranial nerves II-XII grossly intact. Motor strength 5/5 in all extremities. Sensory grossly intact. Cerebellar exam normal. Normal gait. Psych: Awake, alert, with orientation to person, place and time. Behavior, mood, and affect are within normal limits. 08:21 Back: pain, that is moderate, ROM is painful, with rotation to the right, with rotation to the left, with flexion, with extension, normal spinal alignment noted, CVA tenderness, is absent, muscle spasm, is appreciated in the left low back, left mid back, right mid back and right low back. Vital Signs: 08:03 BP 143 / 85; Pulse 61; Resp 16; Pulse Ox 100% on R/A; Weight 90.72 kg; Height 5 ft. 5 iw in. ; Pain 8/10; 08:59 BP 125 / 70; Pulse 65; Resp 18; Pulse Ox 98% on R/A; ap3 08:03 Body Mass Index 33.28 (90.72 kg, 165.1 cm) iw 08:03 Pain Scale: Adult iw MDM: 07:59 Patient medically screened. [facility] 08:31 Differential diagnosis: arthritis, strain, sciatica, Herniated disc UTI. Data reviewed: [facility] vital signs, nurses notes, lab test result(s), radiologic studies, CT scan. Consideration of Admission/Observation Escalation of care including admission/observation considered. Independent interpretation of the following test(s) in the Emergency Department CT Scan: My interpretation is lumbar spine. Test considered but Not performed: MRI: lumbar spine , not done. Care significantly affected by the following chronic conditions: Hypertension, a fib, anxiety. 02/06 08:21 Order name: CBC with Diff [facility] 02/06 08:21 Order name: Comprehensive Metabolic Panel; Complete Time: 09:26 [facility] 02/06 09:43 Order name: Urine Dipstick-Ancillary EDKY 02/06 08:21 Order name: CT Lumbar Spine Wo Con; Complete Time: 09:17 [facility] 02/06 08:21 Order name: Urine Dipstick-Ancillary (obtain specimen); Complete Time: 09:45 [facility] Administered Medications: 08:57 Drug: Ketorolac IVP 30 mg Route: IVP; Site: right antecubital; ap3 09:52 Follow up: Response: No adverse reaction; Pain is decreased ap3 08:57 Drug: fentaNYL (PF) IVP 50 mcg Route: IVP; Site: right antecubital; ap3 09:52 Follow up: Response: No adverse reaction; Pain is decreased ap3 08:57 Drug: Ondansetron IVP 4 mg Route: IVP; Site: right antecubital; ap3 09:53 Follow up: Response: No adverse reaction ap3 08:57 Drug: Diazepam PO 10 mg Route: PO; ap3 09:53 Follow up: Response: No adverse reaction; Pain is decreased ap3 08:57 Drug: Decadron - Dexamethasone IVP 10 mg Route: IVP; Site: right antecubital; ap3 09:53 Follow up: Response: No adverse reaction ap3 08:58 Drug: NS 0.9% IV 1000 ml Route: IV; Rate: 1 bolus; Site: right antecubital; ap3 09:52 Follow up: IV Status: Completed infusion; IV Intake: 1000ml ap3 Disposition Summary: 02/06/23 09:28 Discharge Ordered Location: Home bentley Problem: new bentley Symptoms: have improved bentley Condition: Stable bentley Diagnosis - Low back pain bentley - Other injury of muscle, fascia and tendon of lower back bentley - Sciatica, right side bentley - Spondylolysis, lumbar region bentley Followup: bentley - With: Private Physician - When: 2 - 3 days - Reason: Recheck today's complaints, Continuance of care, Re-evaluation by your physician Followup: bentley - With: - When: 2 - 3 days - Reason: Recheck today's complaints, Continuance of care, Re-evaluation by your physician Discharge Instructions: - Discharge Summary Sheet bentley - Acute Back Pain, Adult bentley - Musculoskeletal Pain bentley - Sciatica bentley - Spondylolysis bentley Forms: - Medication Reconciliation Form bentley - Thank You Letter bentley - Antibiotic Education bentley - Prescription Opioid Use bentley Prescriptions: - acetaminophen-codeine 300-15 mg Oral tablet - take 2 tablet by ORAL route every 6 hours as needed for pain; 20 tablet; bentley Refills: 0, Product Selection Permitted - dexamethasone 2 mg Oral tablet - take 2 tablet by ORAL route 2 times per day; 10 tablet; Refills: 0, Product bentley Selection Permitted - Diclofenac Sodium 75 mg Oral tablet,delayed release (DR/EC) - take 1 tablet by ORAL route 2 times per day; 20 tablet; Refills: 0, Product bentley Selection Permitted - Cyclobenzaprine 5 mg Oral Tablet - take 1 tablet by ORAL route 3 times per day As needed; 15 tablet; Refills: 0, bentley Product Selection Permitted Signatures: Dispatcher [employer] Chepe Abbott MD MD cha Williams, Irene, RN RN iw Prokisch, Amanda, RN RN ap3 Sohail Prince MD MD bs3
--- NOTE | 2023-02-06 09:29 | ER ---
Nurse's Notes [facility] Name: Luly Bernardo Age: 57 yrs Sex: Female : 1965 Arrival Date: 02/06/2023 Time: 07:53 Bed 20 Private MD: Diagnosis: Low back pain;Other injury of muscle, fascia and tendon of lower back;Sciatica, right side;Spondylolysis, lumbar region Presentation: 02/06 08:03 Chief complaint: Patient states: right low back pain since last night, hx of sciatic iw nerve pain, 06/29, took Celebrex last night but no pain meds today. Coronavirus screen: At this time, the client does not indicate any symptoms associated with coronavirus-19. Coronavirus screen:. Ebola Screen: Patient negative for fever greater than or equal to 101.5 degrees Fahrenheit, and additional compatible Ebola Virus Disease symptoms Patient denies exposure to infectious person. Patient denies travel to an Ebola-affected area in the 21 days before illness onset. No symptoms or risks identified at this time. Initial Sepsis Screen: Does the patient meet any 2 criteria? No. Patient's initial sepsis screen is negative. Does the patient have a suspected source of infection? No. Patient's initial sepsis screen is negative. Risk Assessment: Do you want to hurt yourself or someone else? Patient reports no desire to harm self or others. Onset of symptoms was February 05, 2023. 08:03 Method Of Arrival: Ambulatory iw 08:03 Acuity: LUIS 4 iw 08:21 Acuity: LUIS 3 iw Historical: - Allergies: 08:05 Clindamycin; iw - Home Meds: 08:05 Metoprolol Tartrate Oral [Active]; Eliquis oral [Active]; losartan oral [Active]; iw Wellbutrin Oral [Active]; Vitamin D Oral [Active]; Furosemide Oral as needed [Active]; Buspirone Oral [Active]; - PMHx: 08:05 Anxiety; Atrial fibrillation; Hypertensive disorder; iw - PSHx: 08:05 ASD repair; hysterectomy; pacemaker; iw - Immunization history:: Adult Immunizations up to date. - Social history:: Smoking status: Patient denies any tobacco usage or history of. - Family history:: not pertinent. Screenin:10 [facility] ED Fall Risk Assessment (Adult) History of falling in the last 3 months, ap3 including since admission No falls in past 3 months (0 pts). 08:10 Abuse screen: Denies threats or abuse. Nutritional screening: No deficits noted. ap3 Tuberculosis screening: No symptoms or risk factors identified. Assessment: 08:58 General: Appears uncomfortable, Behavior is calm, cooperative, appropriate for age. ap3 Pain: Complains of pain in right mid back and left mid back and left low back and right low back Pain radiates to right leg Pain currently is 8 out of 10 on a pain scale. Pain began 1 day ago. Neuro: Level of Consciousness is awake, alert, obeys commands, Oriented to person, place, time, situation. Cardiovascular: Patient's skin is warm and dry. Respiratory: Airway is patent Respiratory effort is even, unlabored, Respiratory pattern is regular, symmetrical. Vital Signs: 08:03 BP 143 / 85; Pulse 61; Resp 16; Pulse Ox 100% on R/A; Weight 90.72 kg; Height 5 ft. 5 iw in. ; Pain 8/10; 08:59 BP 125 / 70; Pulse 65; Resp 18; Pulse Ox 98% on R/A; ap3 08:03 Body Mass Index 33.28 (90.72 kg, 165.1 cm) iw 08:03 Pain Scale: Adult iw ED Course: 07:53 Patient arrived in ED. rg4 07:59 Chepe Mcleod MD is Attending Physician. bentley 08:02 Erum Woodall, RN is Primary Nurse. ap3 08:05 Triage completed. iw 08:09 Arm band placed on. iw 08:10 Patient has correct armband on for positive identification. Allergy band placed. Bed in ap3 low position. Call light in reach. Side rails up X 1. Pulse ox on. NIBP on. Door closed. Noise minimized. 08:35 CT Lumbar Spine Wo Con In Process Unspecified. EDMS 08:53 Initial lab(s) drawn, by me, sent to lab. Inserted saline lock: 22 gauge in right ap3 antecubital area, using aseptic technique. Blood collected. 08:56 Comprehensive Metabolic Panel Sent. ap3 08:56 CBC with Diff Sent. ap3 09:27 Troy Mason MD is Referral Physician. bentley 09:36 ED physician to see patient. ap3 09:51 No provider procedures requiring assistance completed. IV discontinued, intact, ap3 bleeding controlled, No redness/swelling at site. Pressure dressing applied. Administered Medications: 08:57 Drug: Ketorolac IVP 30 mg Route: IVP; Site: right antecubital; ap3 09:52 Follow up: Response: No adverse reaction; Pain is decreased ap3 08:57 Drug: fentaNYL (PF) IVP 50 mcg Route: IVP; Site: right antecubital; ap3 09:52 Follow up: Response: No adverse reaction; Pain is decreased ap3 08:57 Drug: Ondansetron IVP 4 mg Route: IVP; Site: right antecubital; ap3 09:53 Follow up: Response: No adverse reaction ap3 08:57 Drug: Diazepam PO 10 mg Route: PO; ap3 09:53 Follow up: Response: No adverse reaction; Pain is decreased ap3 08:57 Drug: Decadron - Dexamethasone IVP 10 mg Route: IVP; Site: right antecubital; ap3 09:53 Follow up: Response: No adverse reaction ap3 08:58 Drug: NS 0.9% IV 1000 ml Route: IV; Rate: 1 bolus; Site: right antecubital; ap3 09:52 Follow up: IV Status: Completed infusion; IV Intake: 1000ml ap3 Medication: 09:52 VIS not applicable for this client. ap3 Intake: 09:52 IV: 1000ml; Total: 1000ml. ap3 Outcome: 09:28 Discharge ordered by . bentley 09:52 Discharged to home ambulatory. ap3 09:52 Condition: good 09:52 Discharge instructions given to patient, Instructed on discharge instructions, follow up and referral plans. medication usage, Demonstrated understanding of instructions, follow-up care, medications, Prescriptions given X 4. 09:52 Patient left the ED. ap3 Signatures: Dispatcher [employer] Chepe Abbott MD MD cha Williams, Irene, Bertha Fraire RN rg4 Erum Woodall RN RN ap3
[2023-02-06 09:43] LABS: Urine Blood Negative (Negative); Urine Glucose Negative (Negative); Urine Protein Negative (Negative); Urine pH 6.5 (5.0-7.0)
[2023-02-06 12:14] VITALS: BP 125/70; O2SAT 98
== END 2023-02-06 09:52 | disposition home or self-care (01) ==
LOC: ER 07:47
DX: M54.50 Low back pain, unspecified (principal); S39.092A Other injury of muscle, fascia and tendon of lower back, initial encounter; M54.31 Sciatica, right side; M43.06 Spondylolysis, lumbar region; I10 Essential (primary) hypertension; Z95.0 Presence of cardiac pacemaker; Z88.3 Allergy status to other anti-infective agents; Z79.01 Long term (current) use of anticoagulants
CPT/HCPCS: 85025; 36415; 81003; 80053; 72131; J3010; J1100; J2405; J7030